=== PATIENT | male | born 1960 | race African-American/Black ===

== ENCOUNTER → 2017-01-08 | Outpatient (CLI) | payer MEDICARE, MEDICAID ==
[~2017-01-08] MED LIST: ASPI-1159 PO; CARV25TA47 PO; DIGO125T82 PO; METF10002 PO; SACU1TAB7 PO; SIMV40TA5 PO; SITA100T11 PO
== END | disposition home or self-care (01) ==
LOC: RAD 10:57
PROVIDERS: ATTEND Anesthesiology
DX: Z01.818 Encounter for other preprocedural examination (principal); R05 Cough
CPT/HCPCS: 71010

== ENCOUNTER 2017-01-14 05:27 | Day surgery (SDC) | payer MEDICARE, MEDICAID ==
[~2017-01-14] VITALS: Ht 172.7 cm; Wt 81.2 kg
[2017-01-14] MEDS ORDERED: SODIUM CHLORIDE 0.9% 1,000 ML IV SCH (06:45)
[2017-01-14] MEDS ORDERED: SKIN ADHESIVE 0.7 GM EA TOP ONE (07:03)
[2017-01-14] MEDS ORDERED: BUPIVACAINE HCL 0.5% (5MG/ML) 50ML ONE (07:03)
[2017-01-14] MEDS ORDERED: SIMV40TA5 PO (07:06)
[2017-01-14] MEDS ORDERED: CARV25TA47 PO (07:06)
[2017-01-14] MEDS ORDERED: SACU1TAB7 PO (07:06)
[2017-01-14] MEDS ORDERED: ASPI-1159 PO (07:06)
[2017-01-14] MEDS ORDERED: SITA100T11 PO (07:06)
[2017-01-14] MEDS ORDERED: DIGO125T82 PO (07:06)
[2017-01-14] MEDS ORDERED: METF10002 PO (07:06)
[2017-01-14] MEDS ORDERED: FENTANYL CITRATE/PF 50MCG/ML 2ML VIAL ONE ×2 (07:41→09:21)
[2017-01-14] MEDS ORDERED: MIDAZOLAM HCL 2 MG/2 ML VIAL ONE (07:41)
[2017-01-14] MEDS ORDERED: ONDANSETRON HCL 4MG/2ML VIAL IV PRN (07:45)
[2017-01-14] MEDS ORDERED: MEPERIDINE HCL/PF 25MG/ML CPJ IV PRN (07:45)
[2017-01-14] MEDS ORDERED: LABETALOL 5MG/ML SYR 20 MG/4 ML SYRINGE IV PRN (07:45)
[2017-01-14] MEDS ORDERED: CEFAZOLIN SODIUM 1000MG/VIAL ONE (08:08)
[2017-01-14] MEDS ORDERED: ONDANSETRON HCL 4MG/2ML VIAL ONE (08:08)
[2017-01-14] MEDS ORDERED: PROPOFOL 200MG/20ML VIAL IV ONE (08:08)
[2017-01-14] MEDS ORDERED: LIDOCAINE HCL 1% 20ML VIAL (Pyxis) INJ ONE (08:08)
[2017-01-14] MEDS ORDERED: SODIUM CHLORIDE 0.9% 10ML VIAL ONE (08:08)
[2017-01-14] MEDS ORDERED: DEXAMETHASONE 4MG/ML 1ML VIAL ONE (08:08)
[2017-01-14] MEDS ORDERED: BUPIVACAINE HCL 0.5% 125 ML in ON-Q PM012 DRUG DELIV DEVICE 1 EA IR SCH (09:00)
[2017-01-14] MEDS: HYDROMORPHONE HCL/PF 2MG/ML CPJ IV PRN ×2 (10:14→10:24)
[2017-01-14] MEDS ORDERED: HYDROCODONE/ACETAMINOPHEN 5/325MG TABLET PO NR (12:56)
[2017-01-14 13:03] VITALS: BP 110/70
== END 2017-01-14 13:15 | disposition home or self-care (01) ==
LOC: OR 05:27
PROVIDERS: ATTEND Surgery
DX: K40.90 Unilateral inguinal hernia, without obstruction or gangrene, not specified as recurrent (principal); I10 Essential (primary) hypertension; I25.10 Atherosclerotic heart disease of native coronary artery without angina pectoris; E11.69 Type 2 diabetes mellitus with other specified complication
CPT/HCPCS: 49505; 82962; 88302; A4216; C1781; G0168; J0690; J1100; J1170; J2250; J2405; J3010; J3490; J7030; J7120; J2704

== ENCOUNTER 2017-06-21 06:44 | Day surgery (SDC) | payer MEDICARE, MEDICAID ==
[~2017-06-21] VITALS: Ht 172.7 cm; Wt 81.6 kg
[2017-06-21] MEDS ORDERED: LIDOCAINE HCL 1% 20ML VIAL (Pyxis) INJ ONE (07:40)
[2017-06-21] MEDS ORDERED: GENTAMICIN SULF 40MG/ML 2ML VIAL ONE (07:40)
[2017-06-21] MEDS ORDERED: GENTAMICIN/NS IRRIGATION 500 ML IR ONE (07:41)
[2017-06-21 07:54] LABS: CHLORIDE 107 mEq/L (98-107)
[2017-06-21 07:59] LABS: PARTIAL THROMBOPLASTIN TIME 24.3 sec (23.4-31.0); PROTHROMBIN TIME 10.6 sec (9.4-11.6)
[2017-06-21 08:05] LABS: BASOPHILS % 0.8 % (0.0-2.0); EOSINOPHILS % 2.5 % (0.0-5.0); HEMATOCRIT. 45.4 % (42.0-52.0); HEMOGLOBIN. 15.8 g/dL (14.0-18.0); LYMPHOCYTES % 21.8 % (20.0-50.0); MEAN CORPUSCULAR HEMOGLOBIN 31.4 pg (28.0-32.0); MEAN CORPUSCULAR VOLUME 90.2 fL (80.0-94.0); MEAN PLATELET VOLUME 8.1 fl (7.4-10.4); MONOCYTES % 8.1 % (2.0-8.0); NEUTROPHILS % 66.8 % (40.0-76.0); PLATELET 268 x1000/uL (130-400); RED BLOOD CELL COUNT 5.03 mill/uL (4.7-6.1); RED CELL DISTRIBUTION WIDTH 13.7 % (11.6-14.6)
[2017-06-21] MEDS ORDERED: LINA5TAB PO (09:23)
[2017-06-21] MEDS ORDERED: LIDOCAINE HCL/PF 1% 10 MG/ML 5ML VIAL ONE (10:00)
[2017-06-21] MEDS ORDERED: HYDROCODONE/ACETAMINOPHEN 5/325MG TABLET PO PRN (11:00)
[2017-06-21] MEDS ORDERED: ONDANSETRON HCL 4MG/2ML VIAL IV PRN (11:15)
[2017-06-21] MEDS ORDERED: MORPHINE SULFATE 4 MG/ML CPJ (NOT FOR IM USE) IV PRN (12:00)
[2017-06-21 12:01] VITALS: BP 123/75
== END 2017-06-21 15:15 | disposition home or self-care (01) ==
LOC: CCL 06:44
PROVIDERS: ATTEND Internal Medicine Clinical Cardiac Electrophysiology
DX: I44.2 Atrioventricular block, complete (principal); I44.7 Left bundle-branch block, unspecified; I50.22 Chronic systolic (congestive) heart failure; E11.9 Type 2 diabetes mellitus without complications; I50.9 Heart failure, unspecified; I42.9 Cardiomyopathy, unspecified; F12.10 Cannabis abuse, uncomplicated; Z87.891 Personal history of nicotine dependence; Z95.810 Presence of automatic (implantable) cardiac defibrillator; Z79.82 Long term (current) use of aspirin; I10 Essential (primary) hypertension; E78.00 Pure hypercholesterolemia, unspecified
CPT/HCPCS: 33264; 36415; 71045; 80048; 82962; 85025; 85610; 85730; 93005; 93640; C1882; J1580; J2405; J3490; J7030; J7050